=== PATIENT | male | born 1985 | race Two or more races ===

== ENCOUNTER 2018-05-05 19:42 | Inpatient (IN) | payer SELFPAY ==
[~2018-05-05] VITALS: Ht 175.3 cm; Wt 89.4 kg
--- NOTE | 2018-05-05 20:26 | NUR ---
IV INITIATED RIGHT AC 18G. LABS DRAWN FROM SITE. INFORMATION SECURITY SYSTEMS INSTRUCTOR AT BEDSIDE FOR COLLECTION. IV INTACT AND PATENT, PLACED ON SALINE LOCK
[2018-05-05] MEDS ORDERED: ONDANSETRON HCL/PF 4 MG/2 ML VIAL ONE (20:28)
[2018-05-05] MEDS ORDERED: ASPIRIN 325 MG TABLET ONE (20:29)
[2018-05-05] MEDS ORDERED: NITROGLYCERIN 0.4 MG/TAB BOTTLE ONE (20:29)
[2018-05-05] MEDS ORDERED: MORPHINE SULFATE INJ 4 MG/ML DISP.SYRIN ONE (20:29)
[2018-05-05 20:30] LABS: BASOPHILS # (AUTO) 0.1 /CMM (0.0-0.2); BASOPHILS % (AUTO) 0.9 % (0.0-2.0); EOSINOPHILS % (AUTO) 1.2 % (0.0-6.0); HEMATOCRIT 43 % (39-51); HEMOGLOBIN 14.9 g/dL (13.5-17.5); LYMPHOCYTES # (AUTO) 1.8 /CMM (0.8-4.8); LYMPHOCYTES % (AUTO) 27.4 % (20.0-44.0); MEAN CORPUSCULAR HGB CONC 34 g/dl (31.0-36.0); MEAN CORPUSCULAR VOLUME 97 fL (80-96); MONOCYTES # (AUTO) 0.3 /CMM (0.1-1.30); MONOCYTES % (AUTO) 5.1 % (2.0-12.0); NEUTROPHILS # (AUTO) 4.3 /CMM (1.8-8.9); NEUTROPHILS % (AUTO) 65.4 % (43.0-81.0); PLATELET COUNT (AUTO) 125 /CMM (150-450); RED BLOOD CELL COUNT(AUTO) 4.46 MIL/uL (4.5-6.0); WHITE BLOOD COUNT (AUTO) 6.6 K/uL (4.3-11.0)
[2018-05-05] MEDS ORDERED: ONDANSETRON HCL/PF 4 MG/2 ML VIAL IVP ONE (20:30)
[2018-05-05] MEDS ORDERED: MORPHINE SULFATE INJ 2 MG/ML DISP.SYRIN IV ONE (20:30)
[2018-05-05] MEDS ORDERED: IV NS 0.9% 1,000 ML BAG IV ONE (20:30)
[2018-05-05] MEDS ORDERED: ASPIRIN 325 MG TABLET PO ONE (20:30)
[2018-05-05] MEDS ORDERED: NITROGLYCERIN 0.4 MG/TAB BOTTLE SL ONE (20:30)
[2018-05-05 20:37] LABS: CALCIUM, SERUM 9.1 mg/dL (8.5-10.1); CARBON DIOXIDE 24 mmol/L (21-32); CHLORIDE 102 mmol/L (98-107); GLUCOSE 112 mg/dL (74-106); POTASSIUM 3.4 mmol/L (3.5-5.1); SODIUM SERUM 137 mmol/L (136-145); UREA NITROGEN, BLOOD 8 mg/dL (7-18)
[2018-05-05 20:44] LABS: ALANINE AMINOTRANSFERASE 168 U/L (12-78); ALBUMIN 4.2 g/dL (3.4-5.0); ALKALINE PHOSPHATASE 70 U/L (46-116); ASPARTATE AMINOTRANSFERASE 44 U/L (15-37); BILIRUBIN,DIRECT 0.1 mg/dL (0.0-0.2); BILIRUBIN,TOTAL 0.2 mg/dL (0.2-1.0); TOTAL PROTEIN, SERUM 7.3 g/dL (6.4-8.2)
[2018-05-05] MEDS ORDERED: NITROGLYCERIN PACKET 1 GM PACKET TOP ONE (21:00)
[2018-05-05] MEDS ORDERED: ACETAMINOPHEN ES 500 MG TABLET PO ONE (21:00)
[2018-05-05] MEDS ORDERED: ACETAMINOPHEN ES 500 MG TABLET ONE (21:15)
[2018-05-05] MEDS ORDERED: NITROGLYCERIN PACKET 1 GM PACKET ONE (21:16)
[2018-05-05] MEDS ORDERED: MORPHINE SULFATE INJ 2 MG/ML DISP.SYRIN IV PRN (21:30)
[2018-05-05] MEDS ORDERED: ACETAMINOPHEN 325 MG TABLET PO PRN (21:30)
[2018-05-05] MEDS ORDERED: ZOLPIDEM TARTRATE 5 MG TABLET PO PRN (21:30)
[2018-05-05] MEDS ORDERED: ONDANSETRON HCL/PF 4 MG/2 ML VIAL IVP PRN (21:30)
[2018-05-05] MEDS ORDERED: HYDROCODONE/APAP 5/325MG 1 EACH TABLET PO PRN (21:30)
[2018-05-05] MEDS ORDERED: MAG HYDROX/AL HYDROX/SIMETH 30 ML UDC PO PRN (21:30)
[2018-05-05] MEDS ORDERED: MORPHINE SULFATE INJ 2 MG/ML DISP.SYRIN IM PRN (21:30)
[2018-05-05] MEDS ORDERED: MAGNESIUM HYDROXIDE 30 ML UDC PO PRN (21:30)
[2018-05-05] MEDS ORDERED: ALBUTEROL FS 2.5 MG/3 ML VIAL.NEB NEB SCH (21:30)
[2018-05-05] MEDS ORDERED: Z GUARD REMEDY 2 OZ OINT TP PRN (21:30)
--- NOTE | 2018-05-05 21:34 | NUR ---
REPORT GIVEN TO RVI RN FOR MOLLY; PT WILL BE TRANSPORTED TO 3RD FLOOR VIA ACLS PROTOCOL
[2018-05-05] MEDS ORDERED: ATORVASTATIN 40 MG TABLET PO SCH (22:00)
[2018-05-05 22:07] LABS: B-TYPE NATRIURETIC PEPTIDE 73 PG/ML (0-125)
[2018-05-05 22:17] LABS: IRON, SERUM 67 ug/dl (50-175); TOTAL IRON BINDING CAPACITY 317 ug/dl (250-450)
--- NOTE | 2018-05-05 22:40 | NUR ---
RECEIVED PATIENT FROM ER FOR CHEST PAIN. AO X 3, ABLE TO MAKE NEED KNOWN. NO ACUTE DISTRESS NOTED. CHEST PAIN 2/10 AT THIS TIME. TELE READING SR 85. SKIN INTACT. IV SITE PATENT, INTACT; FLUSHED. SAFETY REMINDERS GIVEN. ON LOW BED WITH BILATERAL UPPER SIDE RAILS UP. CALL GUADALUPE WITHIN EASY REACH. WILL CONTINUE TO MONITOR.
[2018-05-05 23:00] VITALS: BP 127/82
[2018-05-06 04:00] VITALS: BP 104/63
--- NOTE | 2018-05-06 06:30 | NUR ---
PATIENT ASLEEP, EASILY AROUSABLE. RESPIRATIONS EVEN. NO SIGNS OF PAIN NOTED. TELE READING SB HR 50. DUE MED GIVEN WITH NO ASE NOTED. NEEDS ATTENDED. SAFETY REMINDERS AND COMFORT MEASURES IN PLACE. WILL GIVE REPORT TO DAY SHIFT FOR CONTINUITY OF CARE.
[2018-05-06 06:44] LABS: BASOPHILS % (AUTO) 0.3 % (0.0-2.0); EOSINOPHILS % (AUTO) 2.4 % (0.0-6.0); HEMATOCRIT 40 % (39-51); HEMOGLOBIN 13.9 g/dL (13.5-17.5); LYMPHOCYTES # (AUTO) 2.5 /CMM (0.8-4.8); LYMPHOCYTES % (AUTO) 39.6 % (20.0-44.0); MEAN CORPUSCULAR HGB CONC 35 g/dl (31.0-36.0); MEAN CORPUSCULAR VOLUME 96 fL (80-96); MONOCYTES # (AUTO) 0.4 /CMM (0.1-1.30); MONOCYTES % (AUTO) 6.3 % (2.0-12.0); NEUTROPHILS # (AUTO) 3.2 /CMM (1.8-8.9); NEUTROPHILS % (AUTO) 51.4 % (43.0-81.0); PLATELET COUNT (AUTO) 108 /CMM (150-450); RED BLOOD CELL COUNT(AUTO) 4.13 MIL/uL (4.5-6.0); WHITE BLOOD COUNT (AUTO) 6.2 K/uL (4.3-11.0)
[2018-05-06 06:47] LABS: CALCIUM, SERUM 8.8 mg/dL (8.5-10.1); CARBON DIOXIDE 27 mmol/L (21-32); CHLORIDE 106 mmol/L (98-107); CREATININE 1.1 mg/dL (0.6-1.3); GLUCOSE 93 mg/dL (74-106); MAGNESIUM 2.2 mg/dL (1.8-2.4); PHOSPHORUS 4.5 mg/dL (2.5-4.9); POTASSIUM 3.3 mmol/L (3.5-5.1); SODIUM SERUM 144 mmol/L (136-145); UREA NITROGEN, BLOOD 11 mg/dL (7-18)
[2018-05-06 06:48] LABS: CHOLESTEROL 204 mg/dL (<200); HDL CHOLESTEROL 31 mg/dL (40-60); LDL 148 mg/dL (0-99); TRIGLYCERIDES 150 mg/dL (30-150)
[2018-05-06] MEDS ORDERED: POTASSIUM CHLORIDE 20 MEQ TAB.PRT.SR PO ONE ×2 (07:00)
--- NOTE | 2018-05-06 07:39 | NUR ---
CLOTH BIN PACKER OPENING NOTES RECEIVED PT LAYING IN BED WITH HOB ELEVATED. PT IS A/O X4, AFEBRILE. RESPIRATIONS ARE EVEN AND UNLABORED, NOT IN ANY ACUTE DISTRESS NOTED. PT C/O CHEST PAIN 2/10 BUT IS TOLERABLE AND STATED HE DOES NOT WANT ANY PAIN MEDICATION AT THIS TIME. NO C/O SOB, N/V AT THIS TIME. IV SITE TO RAC INTACT, NO INFILTRATION NOTED. DRESSING KEPT CLEAN AND DRY. SAFETY MEASURES ARE IN PLACE. INSTRUCTED PT TO USE CALL LIGHT WHEN ASSISTANCE IS NEEDED, CALL LIGHT IS LEFT WITHIN REACH. WILL MONITOR THROUGHOUT SHIFT FOR CONTINUITY OF CARE.
[2018-05-06 08:00] VITALS: BP 116/67
[2018-05-06] MEDS ORDERED: ASPIRIN 81 MG TAB.CHEW PO SCH (09:00)
[2018-05-06] MEDS ORDERED: METOPROLOL TARTRATE 25 MG TABLET PO ONE (13:00)
[2018-05-06] MEDS ORDERED: IV NS 0.9% 250 ML IV ONE (14:02)
[2018-05-06] MEDS ORDERED: CT SWABBABLE VALVE TRANS SET 1 EA INFUS.SET MC ONE (14:02)
[2018-05-06] MEDS ORDERED: IOHEXOL-350 100 ML VIAL IV ONE (14:02)
--- NOTE | 2018-05-06 14:10 | NUR ---
MS RN NOTES-- PT P/U BY RADIOLOGY FOR CTA IN STABLE CONDITION.
--- NOTE | 2018-05-06 15:00 | NUR ---
MS RN NOTES-- PT CAME BACK FROM RADIOLOGY IN STABLE CONDITION.
[2018-05-06] MEDS ORDERED: METOPROLOL TARTRATE INJ 5 MG/5 ML AMPUL IVP ONE (15:30)
[2018-05-06] MEDS ORDERED: IV NS 0.9% 500 ML IV PRN (15:30)
[2018-05-06] MEDS ORDERED: NITROGLYCERIN 0.4 MG/TAB BOTTLE SL ONE (15:30)
[2018-05-06 15:40] LABS: ALBUMIN 3.7 g/dL (3.4-5.0); BILIRUBIN,DIRECT 0.1 mg/dL (0.0-0.2); BILIRUBIN,TOTAL 0.4 mg/dL (0.2-1.0); TOTAL PROTEIN, SERUM 6.2 g/dL (6.4-8.2)
--- NOTE | 2018-05-06 15:45 | NUR ---
ICU/RN:S/P CTA Pt s/p CTA, tolerated well, no metoprolol dose administered as pt HR sinus danie 58 prior to exam. Nitro SL dose administered per protocol. VSS. Pt transferred back to room, pt states mild LOVELL s/p nitro administration, verbalized understanding that LOVELL is side effect of medication, educated on fall precautions. Report given to primary RN for MOLLY.
--- NOTE | 2018-05-06 16:12 | NUR ---
Met with patient, he lives at home with his parents.States he just finished his radiation treatment 3 weeks ago. He is ambulatory and independent with adl's. He parked his car at the parking structure. His pcp is Dr.Wu-Cheng Presley at [facility]. His father or fiance will provide ride when discharge. Addendum: 05/06/18 at 1834 by SHAILESH WHITMAN RN Amended: Links added.
--- NOTE | 2018-05-06 17:30 | NUR ---
MS PIN MACHINE TENDER NOTE PT DISCHARGED TO HOME IN MEDICALLY STABLE CONDITION. PT IS A/O X4, AFEBRILE. PT IS AMBULATORY WITH STEADY GAIT. RESPIRATIONS ARE EVEN AND UNLABORED, NOT IN ANY ACUTE DISTRESS NOTED. DENIES ANY PAIN, SOB, N/V. DENIES ANY ABDOMINAL DISCOMFORT, ABDOMEN IS SOFT AND NONDISTENDED. BOWEL SOUNDS ARE PRESENT IN ALL 4 QUADRANTS UPON AUSCULTATION. DENIES ANY BLADDER DISCOMFORT. EXPLAINED DISCHARGE PAPERWORK TO PT WITH VERBAL AND WRITTEN UNDERSTANDING. ALL BELONGINGS TAKEN WITH PT. NO SKIN ISSUES NOTED, SKIN IS INTACT. IV ACCESS REMOVED, APPLIED PRESSURE AND TOLERATED WELL. ID BAND REMOVED. ACCOMPANIED PT TO LOBBY, AMBULATORY WITH NO DIFFICULTY. PT DISCHARGED IN STABLE CONDITION.
== END 2018-05-06 17:30 | disposition home or self-care (01) | DRG 313 ==
LOC: ER 19:49 → TELE 22:14 → MED 05-06 14:13
PROVIDERS: ADMIT Internal Medicine; ATTEND Nurse Practitioner Acute Care
DX: R07.89 Other chest pain (principal); C71.9 Malignant neoplasm of brain, unspecified; E78.5 Hyperlipidemia, unspecified; R74.0 Nonspecific elevation of levels of transaminase and lactic acid dehydrogenase [LDH]; Z92.21 Personal history of antineoplastic chemotherapy; Z92.3 Personal history of irradiation; F17.210 Nicotine dependence, cigarettes, uncomplicated; K76.0 Fatty (change of) liver, not elsewhere classified; E87.6 Hypokalemia; Z82.49 Family history of ischemic heart disease and other diseases of the circulatory system
CPT/HCPCS: 36415; 71045-TC; 75574; 76700-TC; 80048-TC; 80061-TC; 80076-TC; 83540-TC; 83735-TC; 83880; 84100-TC; 84484-TC; 85025-TC; 85378-TC; 87081-TC; 93307-TC; G0378; J2270; J2405; J7030; J7050; Q9967